=== PATIENT | female | born 1965 | race Caucasian/White ===

== ENCOUNTER 2025-04-15 06:28 | Day surgery (SDC) | payer BC ==
[2025-04-14 11:08] VITALS: BMI 26.5
[2025-04-15 09:59] VITALS: TEMP 98
[2025-04-15 10:42] VITALS: BP 125/73; PULSE 76; RESP 16
== END 2025-04-15 10:45 | disposition home or self-care (01) ==
LOC: JASU-ENDO 06:28
PROVIDERS: ATTEND Internal Medicine Gastroenterology
PROC: 0DBP8ZX Excision of Rectum, Via Natural or Artificial Opening Endoscopic, Diagnostic (ICD-10-PCS; 2025-04-15)
PROC: 0DBH8ZX Excision of Cecum, Via Natural or Artificial Opening Endoscopic, Diagnostic (ICD-10-PCS; principal; 2025-04-15 09:30)
DX: Z12.11 Encounter for screening for malignant neoplasm of colon (principal); K63.5 Polyp of colon; K63.89 Other specified diseases of intestine
CPT/HCPCS: 88305-TC